=== PATIENT | female | born 1955 | race Caucasian/White ===

== ENCOUNTER 2016-10-24 09:33 | Emergency (ER) | payer OTHER ==
[~2016-10-24] VITALS: Ht 157.5 cm; Wt 76.7 kg
[~2016-10-24 09:33] MED LIST: ANT25 PO; CEL20 PO; LOP50 PO; LOP600 PO; ROB750 PO; SYN88 PO; V10 PO
[2016-10-24 10:44] LABS: BASOPHIL % 0.3 % (0-2); PLATELET COUNT 214 x10^3mcL (130-400)
[2016-10-24 10:48] LABS: CALCIUM 8.9 mg/dL (8.5-10.1); CARBON DIOXIDE 28.1 mmol/L (21-32); CHLORIDE SERUM 107 mmol/L (98-107); CREATININE SERUM 0.7 mg/dL (0.6-1.0); GFR1 > 60 mL/min; GLUCOSE SERUM 138 mg/dL (74-106); POTASSIUM SERUM 3.5 mmol/L (3.5-5.1); SODIUM SERUM 139 mmol/L (136-145)
[2016-10-24 10:51] LABS: UA SPECIFIC GRAVITY <=1.005 (1.005-1.035); microscopic required? YES
[2016-10-24 10:52] LABS: urine erythrocyte 3+ (NEGATIVE)
[2016-10-24 10:55] LABS: ALBUMIN 3.5 g/dL (3.4-5.0); ALKALINE PHOSPHATASE 118 U/L (46-116); ALT/SGPT 38 U/L (14-59); AST/SGOT 33 U/L (15-37); BILIRUBIN TOTAL 0.6 mg/dL (0.20-1.00); RED CELL DISTRIBUTION WIDTH 15.9 % (11.5-14.5); TOTAL PROTEIN, SERUM 7.5 g/dL (6.4-8.2)
[2016-10-24 13:40] VITALS: BP 138/67
== END 2016-10-24 13:40 | disposition home or self-care (01) ==
LOC: ED 09:33
PROVIDERS: Specialist
DX: N39.0 Urinary tract infection, site not specified (principal); N13.30 Unspecified hydronephrosis
CPT/HCPCS: J0696; J1885; Q9967

== ENCOUNTER 2017-01-28 18:00 | Inpatient (IN) | payer OTHER ==
[~2017-01-28] VITALS: Ht 154.9 cm; Wt 72.1 kg
[2017-01-28 20:40] LABS: BASOPHIL % 0.4 % (0-2); PLATELET COUNT 233 x10^3mcL (130-400); RED CELL DISTRIBUTION WIDTH 13.9 % (11.5-14.5)
[2017-01-28 20:51] LABS: CALCIUM 9.1 mg/dL (8.5-10.1); CARBON DIOXIDE 28.1 mmol/L (21-32); CHLORIDE SERUM 109 mmol/L (98-107); CREATININE SERUM 0.7 mg/dL (0.6-1.0); GFR1 > 60 mL/min; GLUCOSE SERUM 89 mg/dL (74-106); POTASSIUM SERUM 3.9 mmol/L (3.5-5.1); SODIUM SERUM 141 mmol/L (136-145)
[2017-01-28 21:03] LABS: ALBUMIN 3.5 g/dL (3.4-5.0); ALKALINE PHOSPHATASE 132 U/L (46-116); ALT/SGPT 26 U/L (14-59); AST/SGOT 23 U/L (15-37); BILIRUBIN TOTAL 0.64 mg/dL (0.20-1.00); FREE T4 0.94 ng/dL (0.76-1.46); TOTAL PROTEIN, SERUM 7.4 g/dL (6.4-8.2)
[2017-01-28 21:03] LABS: UA SPECIFIC GRAVITY 1.015 (1.005-1.035); microscopic required? YES; urine erythrocyte TRACE (NEGATIVE)
[2017-01-28] MEDS ORDERED: ASPIR 8181 MG PO (23:32)
[2017-01-28] MEDS ORDERED: XAN1 PO (23:33)
[2017-01-29 00:44] LABS: CHOLESTEROL/HDL RATIO 2.7; MAGNESIUM 1.9 mg/dL (1.8-2.4); PHOSPHOROUS 2.8 mg/dL (2.5-4.9)
[2017-01-29 00:46] LABS: T3 TOTAL 0.67 ng/mL
[2017-01-29 00:54] LABS: FREE T4 0.92 ng/dL (0.76-1.46); T4(THYROXINE) 8.8 ug/dL (4.7-13.3)
[2017-01-29 01:03] VITALS: BP 145/77
[2017-01-29 02:29] LABS: AMPHETAMINE QUAL UR NONE DETECTED (NEG <=1000)
[2017-01-29 02:30] LABS: microscopic required? YES; urine erythrocyte TRACE (NEGATIVE)
[2017-01-29 05:38] VITALS: BP 137/65
[2017-01-29 06:18] LABS: CALCIUM 9.1 mg/dL (8.5-10.1); CARBON DIOXIDE 27.7 mmol/L (21-32); CHLORIDE SERUM 109 mmol/L (98-107); CREATININE SERUM 0.6 mg/dL (0.6-1.0); GFR1 > 60 mL/min; GLUCOSE SERUM 94 mg/dL (74-106); POTASSIUM SERUM 3.7 mmol/L (3.5-5.1); SODIUM SERUM 142 mmol/L (136-145)
[2017-01-29 06:27] LABS: BASOPHIL % 0.4 % (0-2); PLATELET COUNT 213 x10^3mcL (130-400); RED CELL DISTRIBUTION WIDTH 14.3 % (11.5-14.5)
[2017-01-29] MEDS ORDERED: XAN1 PO (09:16)
[2017-01-29 09:51] VITALS: BP 137/66
[2017-01-29 14:11] VITALS: BP 118/66
[2017-01-29 17:27] VITALS: BP 122/72
[2017-01-29 20:53] VITALS: BP 116/65
[2017-01-30 04:59] VITALS: BP 140/76
[2017-01-30 06:58] LABS: BASOPHIL % 0.5 % (0-2); PLATELET COUNT 212 x10^3mcL (130-400); RED CELL DISTRIBUTION WIDTH 14.5 % (11.5-14.5)
[2017-01-30 07:04] LABS: CALCIUM 8.8 mg/dL (8.5-10.1); CARBON DIOXIDE 25.1 mmol/L (21-32); CHLORIDE SERUM 110 mmol/L (98-107); CREATININE SERUM 0.6 mg/dL (0.6-1.0); GFR1 > 60 mL/min; GLUCOSE SERUM 91 mg/dL (74-106); MAGNESIUM 1.9 mg/dL (1.8-2.4); PHOSPHOROUS 3.6 mg/dL (2.5-4.9); POTASSIUM SERUM 3.8 mmol/L (3.5-5.1); SODIUM SERUM 145 mmol/L (136-145)
[2017-01-30 09:16] VITALS: BP 128/80
[2017-01-30] MEDS ORDERED: BD LACTINEX1.4 MG PO (10:58)
[2017-01-30] MEDS ORDERED: KEFLEX500 M1 PO (10:58)
[2017-01-30 11:22] VITALS: BP 128/80
== END 2017-01-30 11:53 | disposition home or self-care (01) | DRG 52 ==
LOC: ED 18:00 → DU 23:37
PROVIDERS: Emergency Medicine; ADMIT Student in an Organized Health Care Education/Training Program
DX: G92 Toxic encephalopathy (principal); N17.0 Acute kidney failure with tubular necrosis; E03.9 Hypothyroidism, unspecified; I10 Essential (primary) hypertension; F32.9 Major depressive disorder, single episode, unspecified; E78.00 Pure hypercholesterolemia, unspecified; K21.9 Gastro-esophageal reflux disease without esophagitis; N39.0 Urinary tract infection, site not specified; R31.9 Hematuria, unspecified; F41.1 Generalized anxiety disorder; E87.8 Other disorders of electrolyte and fluid balance, not elsewhere classified
CPT/HCPCS: 83880; 84439; J0696; J7030; Q0092

== ENCOUNTER 2017-02-01 16:05 | Emergency (ER) | payer OTHER ==
[~2017-02-01] VITALS: Ht 160 cm; Wt 70.8 kg
[~2017-02-01 16:05] MED LIST changes: +ASPIR 8181 MG PO; +BD LACTINEX1.4 MG PO; +KEFLEX500 M1 PO; +XAN1 PO
[2017-02-01 16:39] LABS: AMPHETAMINE QUAL UR NONE DETECTED (NEG <=1000)
[2017-02-01 17:14] LABS: BASOPHIL % 0.3 % (0-2); PLATELET COUNT 224 x10^3mcL (130-400); RED CELL DISTRIBUTION WIDTH 13.9 % (11.5-14.5)
[2017-02-01 17:21] LABS: CARBON DIOXIDE 26.5 mmol/L (21-32); CHLORIDE SERUM 105 mmol/L (98-107); CREATININE SERUM 0.7 mg/dL (0.6-1.0); GFR1 > 60 mL/min; GLUCOSE SERUM 147 mg/dL (74-106); POTASSIUM SERUM 3.6 mmol/L (3.5-5.1); SODIUM SERUM 140 mmol/L (136-145)
[2017-02-01 17:26] LABS: ALBUMIN 3.6 g/dL (3.4-5.0); ALKALINE PHOSPHATASE 112 U/L (46-116); ALT/SGPT 26 U/L (14-59); AST/SGOT 19 U/L (15-37); BILIRUBIN TOTAL 0.9 mg/dL (0.20-1.00); TOTAL PROTEIN, SERUM 7.7 g/dL (6.4-8.2)
[2017-02-01 17:57] VITALS: BP 120/85
== END 2017-02-01 17:57 | disposition home or self-care (01) ==
LOC: ED 16:05
PROVIDERS: Emergency Medicine
DX: F41.9 Anxiety disorder, unspecified (principal); I10 Essential (primary) hypertension; E03.9 Hypothyroidism, unspecified; E78.00 Pure hypercholesterolemia, unspecified; K21.9 Gastro-esophageal reflux disease without esophagitis; Z90.89 Acquired absence of other organs
CPT/HCPCS: 36415; G0480

== ENCOUNTER 2017-06-21 10:14 | Emergency (ER) | payer OTHER ==
[~2017-06-21] VITALS: Ht 160 cm; Wt 68.5 kg
[2017-06-21 10:19] VITALS: Ht 160 cm; Wt 68.5 kg
[2017-06-21 13:23] VITALS: BP 120/70
== END 2017-06-21 13:23 | disposition home or self-care (01) ==
LOC: ED 10:14
DX: S46.912A Strain of unspecified muscle, fascia and tendon at shoulder and upper arm level, left arm, initial encounter (principal); L08.9 Local infection of the skin and subcutaneous tissue, unspecified; I10 Essential (primary) hypertension; E78.00 Pure hypercholesterolemia, unspecified; E03.9 Hypothyroidism, unspecified; W22.8XXA Striking against or struck by other objects, initial encounter; Y93.89 Activity, other specified; Y92.89 Other specified places as the place of occurrence of the external cause; Y99.8 Other external cause status; Z98.890 Other specified postprocedural states
CPT/HCPCS: J1885

== ENCOUNTER 2017-09-15 16:21 | Emergency (ER) | payer OTHER ==
[~2017-09-15] VITALS: Ht 165.1 cm; Wt 68.0 kg
[2017-09-15 16:36] VITALS: BP 156/78; Ht 165.1 cm; Wt 68.0 kg
== END 2017-09-15 19:43 | disposition left against medical advice (07) ==
LOC: ED 16:21
DX: Z53.21 Procedure and treatment not carried out due to patient leaving prior to being seen by health care provider (principal)

== ENCOUNTER 2017-10-16 09:24 | Emergency (ER) | payer OTHER ==
[~2017-10-16] VITALS: Ht 167.6 cm; Wt 66.7 kg
[2017-10-16 09:28] VITALS: Ht 167.6 cm; Wt 66.7 kg
[2017-10-16 11:27] VITALS: BP 135/74
== END 2017-10-16 11:27 | disposition home or self-care (01) ==
LOC: ED 09:24
DX: G44.209 Tension-type headache, unspecified, not intractable (principal); F41.9 Anxiety disorder, unspecified; I10 Essential (primary) hypertension; F32.9 Major depressive disorder, single episode, unspecified; E03.9 Hypothyroidism, unspecified; K21.9 Gastro-esophageal reflux disease without esophagitis; Z90.89 Acquired absence of other organs; Z90.49 Acquired absence of other specified parts of digestive tract
CPT/HCPCS: J1885

== ENCOUNTER 2018-01-20 06:42 | Emergency (ER) | payer OTHER ==
[~2018-01-20] VITALS: Ht 154.9 cm; Wt 68.5 kg
[2018-01-20 06:47] VITALS: BP 128/66; Ht 154.9 cm; Wt 68.5 kg
== END 2018-01-20 08:16 | disposition home or self-care (01) ==
LOC: ED 06:42
DX: N39.0 Urinary tract infection, site not specified (principal); F41.9 Anxiety disorder, unspecified; K21.9 Gastro-esophageal reflux disease without esophagitis; F32.9 Major depressive disorder, single episode, unspecified; I10 Essential (primary) hypertension; E78.00 Pure hypercholesterolemia, unspecified; E03.9 Hypothyroidism, unspecified; Z90.89 Acquired absence of other organs

== ENCOUNTER 2018-02-15 19:35 | Emergency (ER) | payer OTHER ==
[~2018-02-15] VITALS: Ht 170.2 cm; Wt 69.9 kg
[2018-02-15 20:06] VITALS: BP 123/51; Ht 170.2 cm; Wt 69.9 kg
== END 2018-02-15 21:47 | disposition left against medical advice (07) ==
LOC: ED 19:35
DX: Z53.21 Procedure and treatment not carried out due to patient leaving prior to being seen by health care provider (principal)

== ENCOUNTER 2018-02-16 06:42 | Emergency (ER) | payer OTHER ==
[~2018-02-16] VITALS: Ht 170.2 cm; Wt 68.9 kg
[2018-02-16 06:49] VITALS: Ht 170.2 cm; Wt 68.9 kg
[2018-02-16 08:51] VITALS: BP 154/74
== END 2018-02-16 08:51 | disposition home or self-care (01) ==
LOC: ED 06:42
DX: M25.551 Pain in right hip (principal); I10 Essential (primary) hypertension; F32.9 Major depressive disorder, single episode, unspecified; F41.9 Anxiety disorder, unspecified; E03.9 Hypothyroidism, unspecified; E78.00 Pure hypercholesterolemia, unspecified; K21.9 Gastro-esophageal reflux disease without esophagitis; Z98.84 Bariatric surgery status

== ENCOUNTER 2018-03-12 07:52 | Emergency (ER) | payer OTHER ==
[~2018-03-12] VITALS: Ht 157.5 cm; Wt 67.8 kg
[2018-03-12 07:54] VITALS: Ht 157.5 cm; Wt 67.8 kg
[2018-03-12 09:56] VITALS: BP 103/70
== END 2018-03-12 09:56 | disposition home or self-care (01) ==
LOC: ED 07:52
DX: M10.9 Gout, unspecified (principal); I10 Essential (primary) hypertension; F41.9 Anxiety disorder, unspecified; K21.9 Gastro-esophageal reflux disease without esophagitis; E78.00 Pure hypercholesterolemia, unspecified; F32.9 Major depressive disorder, single episode, unspecified; Z90.89 Acquired absence of other organs
CPT/HCPCS: Q0092

== ENCOUNTER 2018-03-30 13:15 | Emergency (ER) | payer OTHER ==
[~2018-03-30] VITALS: Ht 172.7 cm; Wt 81.6 kg
[2018-03-30 13:17] VITALS: Ht 172.7 cm; Wt 81.6 kg
[2018-03-30 15:15] LABS: BASOPHIL % 0.4 % (0-2); PLATELET COUNT 239 x10^3mcL (130-400); RED CELL DISTRIBUTION WIDTH 13.6 % (11.5-14.5)
[2018-03-30 15:19] LABS: microscopic required? NO
[2018-03-30 15:20] LABS: CALCIUM 9.2 mg/dL (8.5-10.1); CARBON DIOXIDE 29.8 mmol/L (21-32); CHLORIDE SERUM 106 mmol/L (98-107); CREATININE SERUM 0.6 mg/dL (0.6-1.0); GFR1 > 60 mL/min; GLUCOSE SERUM 103 mg/dL (74-106); POTASSIUM SERUM 4.4 mmol/L (3.5-5.1); SODIUM SERUM 144 mmol/L (136-145)
[2018-03-30 15:25] LABS: UA SPECIFIC GRAVITY <=1.005 (1.005-1.035); urine erythrocyte NEGATIVE (NEGATIVE)
[2018-03-30 15:32] LABS: ALBUMIN 3.7 g/dL (3.4-5.0); ALKALINE PHOSPHATASE 100 U/L (46-116); ALT/SGPT 26 U/L (14-59); AMYLASE 41 U/L (25-115); AST/SGOT 29 U/L (15-37); CHOLESTEROL 187 mg/dL (<200); LIPASE 132 IU/L (73-393); MAGNESIUM 2.1 mg/dL (1.8-2.4); T4(THYROXINE) 8.7 ug/dL (4.7-13.3); TOTAL PROTEIN, SERUM 7.5 g/dL (6.4-8.2)
[2018-03-30 15:34] LABS: AMPHETAMINE QUAL UR NONE DETECTED (See below)
[2018-03-30 15:35] LABS: HDL CHOLESTEROL 75 mg/dL (40-60)
[2018-03-30 16:32] VITALS: BP 118/69
[2018-03-30 18:26] LABS: PHOSPHOROUS 3.5 mg/dL (2.5-4.9)
[2018-03-30 18:45] LABS: CHOLESTEROL/HDL RATIO 2.6
== END 2018-03-30 17:17 | disposition home or self-care (01) ==
LOC: ED 13:15 → DU 16:49
PROVIDERS: Emergency Medicine; Internal Medicine
DX: I62.9 Nontraumatic intracranial hemorrhage, unspecified (principal); I10 Essential (primary) hypertension; E03.9 Hypothyroidism, unspecified; F32.9 Major depressive disorder, single episode, unspecified; E78.00 Pure hypercholesterolemia, unspecified; K21.9 Gastro-esophageal reflux disease without esophagitis; F41.9 Anxiety disorder, unspecified; Z98.84 Bariatric surgery status; Z90.89 Acquired absence of other organs; Z90.49 Acquired absence of other specified parts of digestive tract; Z98.890 Other specified postprocedural states
CPT/HCPCS: 36415; 83880; Q0092

== ENCOUNTER 2018-04-18 11:37 | Emergency (ER) | payer OTHER ==
[~2018-04-18] VITALS: Ht 157.5 cm; Wt 68.0 kg
[2018-04-18 11:40] VITALS: Ht 157.5 cm; Wt 68.0 kg
[2018-04-18 13:35] LABS: CALCIUM 9.4 mg/dL (8.5-10.1); CARBON DIOXIDE 28.5 mmol/L (21-32); CHLORIDE SERUM 105 mmol/L (98-107); CREATININE SERUM 0.9 mg/dL (0.6-1.0); GFR1 > 60 mL/min; GLUCOSE SERUM 94 mg/dL (74-106); POTASSIUM SERUM 4.7 mmol/L (3.5-5.1); SODIUM SERUM 141 mmol/L (136-145)
[2018-04-18 13:40] LABS: ALBUMIN 3.6 g/dL (3.4-5.0); ALKALINE PHOSPHATASE 108 U/L (46-116); ALT/SGPT 23 U/L (14-59); AST/SGOT 22 U/L (15-37); BASOPHIL % 0.2 % (0-2); BILIRUBIN TOTAL 0.6 mg/dL (0.20-1.00); PLATELET COUNT 234 x10^3mcL (130-400); RED CELL DISTRIBUTION WIDTH 13.6 % (11.5-14.5); TOTAL PROTEIN, SERUM 7.8 g/dL (6.4-8.2)
[2018-04-18 13:51] LABS: FREE T4 1.33 ng/dL (0.76-1.46); FREE THYROXINE INDEX 3.2 ug/dL (1.4-4.5); T4(THYROXINE) 9.3 ug/dL (4.7-13.3)
[2018-04-18 14:07] LABS: T3 TOTAL 0.82 ng/mL
[2018-04-18 14:18] VITALS: BP 116/67
== END 2018-04-18 14:45 | disposition home or self-care (01) ==
LOC: ED 11:37
PROVIDERS: Emergency Medicine
DX: R42 Dizziness and giddiness (principal); I10 Essential (primary) hypertension; F41.9 Anxiety disorder, unspecified; F32.9 Major depressive disorder, single episode, unspecified; E03.9 Hypothyroidism, unspecified; E78.00 Pure hypercholesterolemia, unspecified; K21.9 Gastro-esophageal reflux disease without esophagitis; Z90.89 Acquired absence of other organs; Z90.49 Acquired absence of other specified parts of digestive tract
CPT/HCPCS: 36415; 84439

== ENCOUNTER 2018-04-23 21:42 | Inpatient (IN) | payer OTHER ==
[~2018-04-23] VITALS: Ht 157.5 cm; Wt 68.0 kg
[2018-04-23 23:10] LABS: BASOPHIL % 0.5 % (0-2); PLATELET COUNT 275 x10^3mcL (130-400); RED CELL DISTRIBUTION WIDTH 13.7 % (11.5-14.5)
[2018-04-23 23:16] LABS: CALCIUM 9.3 mg/dL (8.5-10.1); CARBON DIOXIDE 25.5 mmol/L (21-32); CHLORIDE SERUM 103 mmol/L (98-107); CREATININE SERUM 0.6 mg/dL (0.6-1.0); GFR1 > 60 mL/min; GLUCOSE SERUM 128 mg/dL (74-106); POTASSIUM SERUM 3.6 mmol/L (3.5-5.1); SODIUM SERUM 140 mmol/L (136-145)
[2018-04-23 23:29] LABS: ALKALINE PHOSPHATASE 118 U/L (46-116); ALT/SGPT 26 U/L (14-59); AST/SGOT 25 U/L (15-37); BILIRUBIN TOTAL 0.63 mg/dL (0.20-1.00); FREE T4 1.33 ng/dL (0.76-1.46); LIPASE 93 IU/L (73-393)
[2018-04-23 23:33] LABS: TOTAL PROTEIN, SERUM 8.3 g/dL (6.4-8.2)
[2018-04-24] VITALS (7 sets, daily range): BP systolic 100–132; BP diastolic 46–68; Ht 157.5 cm; Wt 68.0 kg
[2018-04-24 02:04] LABS: UA SPECIFIC GRAVITY <=1.005 (1.005-1.035); microscopic required? YES; urine erythrocyte NEGATIVE (NEGATIVE)
[2018-04-24 02:37] LABS: AMPHETAMINE QUAL UR NONE DETECTED (See below)
[2018-04-24 10:24] LABS: CHOLESTEROL/HDL RATIO 2.6
[2018-04-25 05:24] VITALS: BP 113/64
[2018-04-25 07:14] LABS: CALCIUM 8.3 mg/dL (8.5-10.1); CARBON DIOXIDE 25.3 mmol/L (21-32); CHLORIDE SERUM 110 mmol/L (98-107); CREATININE SERUM 0.7 mg/dL (0.6-1.0); GFR1 > 60 mL/min; GLUCOSE SERUM 83 mg/dL (74-106); SODIUM SERUM 143 mmol/L (136-145)
[2018-04-25 07:16] LABS: BASOPHIL % 0.8 % (0-2); PLATELET COUNT 223 x10^3mcL (130-400); RED CELL DISTRIBUTION WIDTH 14.5 % (11.5-14.5)
[2018-04-25 07:45] LABS: PHOSPHOROUS 3.7 mg/dL (2.5-4.9)
[2018-04-25 09:37] VITALS: BP 118/64
[2018-04-25 13:09] VITALS: BP 132/80
[2018-04-25 16:51] LABS: CALCIUM IONIZED 5.1 mg/dL (4.5-5.6)
[2018-04-25 17:19] VITALS: BP 141/65
[2018-04-25 21:02] VITALS: BP 113/77
[2018-04-26 05:01] VITALS: BP 105/51
[2018-04-26 06:44] LABS: CALCIUM 8.4 mg/dL (8.5-10.1); CARBON DIOXIDE 25.3 mmol/L (21-32); CHLORIDE SERUM 111 mmol/L (98-107); CREATININE SERUM 0.6 mg/dL (0.6-1.0); GFR1 > 60 mL/min; GLUCOSE SERUM 86 mg/dL (74-106); MAGNESIUM 2.1 mg/dL (1.8-2.4); PHOSPHOROUS 4.2 mg/dL (2.5-4.9); POTASSIUM SERUM 4.1 mmol/L (3.5-5.1); SODIUM SERUM 145 mmol/L (136-145)
[2018-04-26 07:18] LABS: BASOPHIL % 0.6 % (0-2); PLATELET COUNT 222 x10^3mcL (130-400); RED CELL DISTRIBUTION WIDTH 14.4 % (11.5-14.5)
[2018-04-26] MEDS ORDERED: TRA50 PO (07:27)
[2018-04-26] MEDS ORDERED: SERTRALINE50 M1 PO (07:27)
[2018-04-26] MEDS ORDERED: XAN5 PO (07:28)
[2018-04-26 09:09] VITALS: BP 116/54
[2018-04-26 09:31] VITALS: BP 116/54
== END 2018-04-26 10:34 | disposition home or self-care (01) | DRG 47 ==
LOC: ED 21:42 → DU 23:58
PROVIDERS: Emergency Medicine; Internal Medicine; ADMIT General Practice
DX: G45.9 Transient cerebral ischemic attack, unspecified (principal); G93.41 Metabolic encephalopathy; G90.8 Other disorders of autonomic nervous system; E03.9 Hypothyroidism, unspecified; I10 Essential (primary) hypertension; N39.0 Urinary tract infection, site not specified; R31.9 Hematuria, unspecified; E78.5 Hyperlipidemia, unspecified; F32.9 Major depressive disorder, single episode, unspecified; Z90.49 Acquired absence of other specified parts of digestive tract; E78.00 Pure hypercholesterolemia, unspecified; K21.9 Gastro-esophageal reflux disease without esophagitis; Z98.84 Bariatric surgery status; M10.9 Gout, unspecified; F41.1 Generalized anxiety disorder; F41.0 Panic disorder [episodic paroxysmal anxiety]
CPT/HCPCS: 84439; J0696; J7030; J8597; Q0092